=== PATIENT | female | born 1965 | race Caucasian/White ===

== ENCOUNTER → 2020-09-04 09:18 | Outpatient (CLI) | payer OTHER, SELFPAY ==
[2020-09-05 08:56] LABS: Covid-19 Nasal PCR Sendout UK NOT DETECTED
== END ==
PROVIDERS: PCP Family Medicine; Visit Provider Family Medicine
DX: Z03.818 Encounter for observation for suspected exposure to other biological agents ruled out (principal)
CPT/HCPCS: U0003

== ENCOUNTER → 2023-02-23 12:09 | Outpatient (CLI) | payer OTHER, SELFPAY ==
--- NOTE | 2023-02-23 12:14 | XR_ITS ---
FINAL REPORT CLINICAL HISTORY: pain at right iliac crest FINDINGS: RIGHT HIP Two views of the right hip including an AP pelvis demonstrate no acute fracture or dislocation. There are mild hypertrophic changes along the acetabular margins. The visualized bony structures are well aligned. No soft tissue abnormality is seen. IMPRESSION: Mild hypertrophic changes with no acute bony abnormality. Reviewed, Interpreted and Dictated by Cristiano Lujan MD Transcribed by N[place]ia Park Authenticated and [facility]
== END ==
PROVIDERS: PCP Family Medicine; Visit Provider Family Medicine
DX: M25.551 Pain in right hip (principal)
CPT/HCPCS: 73502

== ENCOUNTER → 2023-05-11 23:08 | Outpatient (CLI) | payer OTHER, SELFPAY ==
[2023-05-11 16:26] LABS: Basophils % 0.7 % (0.1-2.0); Eosinophils # 0.2 K/mm3 (0.0-0.4); Eosinophils % 2.9 % (0.1-12.0); Hematocrit 43.5 % (37.0-47.0); Hemoglobin 14.7 g/dL (12.2-16.2); Lymphocytes # 1.6 K/mm3 (0.7-4.5); Lymphocytes % 31.2 % (10-50); Mean Corpuscular HGB Conc 33.8 g/dL (31.8-35.4); Mean Corpuscular Hemoglobin 32.8 pg (27.0-31.2); Mean Corpuscular Volume 97.1 fl (81-99); Mean Platelet Volume 8.5 fl (7.4-10.4); Monocytes # 0.3 K/mm3 (0.1-1.0); Monocytes % 5.5 % (1.7-9.3); Neutrophils # 3.1 K/mm3 (1.8-7.8); Neutrophils % 59.8 % (37.0-80.0); Platelet Count 318 K/mm3 (142-424); Red Blood Count 4.48 M/mm3 (4.20-5.40); Red Cell Distribution Width 12.3 % (11.5-17.5); White Blood Count 5.2 K/mm3 (4.8-10.8)
[2023-05-11 16:27] LABS: Chloride 104 mmol/L (98-107); Potassium 4.5 mmoL/L (3.5-5.1); Sodium 141 mmol/L (136-145)
[2023-05-11 16:30] LABS: Alanine Aminotransferase 25 U/L (12-78); Albumin Level 4.2 g/dl (3.5-5.0); Albumin/Globulin Ratio 1.2 (1.1-1.8); Alkaline Phosphatase 82 U/L (38-126); Anion Gap 13.5 mEq/L (5-15); Aspartate Amino Transferase 35 U/L (14-36); Bilirubin,Total 0.5 mg/dl (0.2-1.3); Blood Urea Nitrogen 18 mg/dl (7-17); Calcium 8.7 mg/dl (8.4-10.2); Carbon Dioxide 28 mmol/L (22.0-30.0); Cholesterol 224 mg/dl (140-200); Estimated Glomerular Filt Rate 74 ml/min (>60); GFR (African American) 89 ML/MIN (>60); Globulin 3.5 g/dL (1.3-3.2); Glucose 95 mg/dl (74-100); Iron 307 ug/dL (37-170); Total Protein,Serum 7.7 g/dl (6.3-8.2); Triglycerides 91 mg/dl (30-150); VLDL Cholesterol 18 mg/dL (0-40)
[2023-05-11 16:31] LABS: Chol/HDL Ratio 3.2 (1-3.5); HDL Cholesterol 71 mg/dl (40-60)
[2023-05-11 16:40] LABS: Total Iron Binding Capacity 405 ug/dL (265-497)
[2023-05-11 16:41] LABS: Direct LDL Cholesterol 114.01 mg/dL (100-129)
[2023-05-11 16:47] LABS: 25-OH Vitamin D, Total 43.6 ng/mL (30-100)
[2023-05-11 17:01] LABS: Thyroid Stimulating Hormone 2.22 uIU/mL (0.465-4.68)
== END ==
PROVIDERS: PCP Nurse Practitioner Family; Visit Provider Nurse Practitioner Family
DX: Z00.00 Encounter for general adult medical examination without abnormal findings (principal); R79.0 Abnormal level of blood mineral; E66.3 Overweight; Z68.29 Body mass index [BMI] 29.0-29.9, adult
CPT/HCPCS: 80053; 80061; 82306; 83540; 83550; 84443; 85025

== ENCOUNTER → 2023-08-03 10:07 | Outpatient (CLI) | payer OTHER, SELFPAY ==
--- NOTE | 2023-08-03 10:07 | US_ITS ---
FINAL REPORT CLINICAL HISTORY: RUQ pain COMPARISON: None FINDINGS: Sonographic images of the right upper quadrant were obtained. The pancreas is partially obscured.The liver has an unremarkable appearance.The gallbladder appears normal without evidence of gallstones.There is no evidence of biliary ductal dilatation.The common duct measures 4mm. Limited images of the right kidney are unremarkable. IMPRESSION: Unremarkable right upper quadrant ultrasound. Reviewed, Interpreted and Dictated by Simone Grijalva III, MD Transcribed by Jennifer Mccracken Authenticated and [facility]
== END ==
PROVIDERS: PCP Family Medicine; Visit Provider Family Medicine
DX: R10.9 Unspecified abdominal pain (principal)
CPT/HCPCS: 76705

== ENCOUNTER → 2023-09-27 09:24 | Outpatient (CLI) | payer OTHER, SELFPAY ==
--- NOTE | 2023-09-27 09:27 | XR_ITS ---
FINAL REPORT CLINICAL HISTORY: left shoulder pain COMPARISON: None FINDINGS: 2 views of the left shoulder were obtained. There is no prior exam for comparison. There is no fracture or dislocation. There is mild acromioclavicular degenerative change present. Soft tissues are normal. IMPRESSION: No acute osseous abnormality of the left shoulder. Reviewed, Interpreted and Dictated by Cheli Menchaca MD Transcribed by Zeina Briggs Authenticated and . [facility]
== END ==
PROVIDERS: PCP Family Medicine; Visit Provider Nurse Practitioner Family
DX: M25.512 Pain in left shoulder (principal)
CPT/HCPCS: 73030

== ENCOUNTER → 2023-10-13 16:41 | Outpatient (CLI) | payer OTHER, SELFPAY ==
--- NOTE | 2023-10-13 16:42 | MR_ITS ---
FINAL REPORT TECHNIQUE: Multiplanar MR without contrast CLINICAL HISTORY: Left shoulder pain. LIIMTED ROM COMPARISON: None FINDINGS: Marrow signal: Unremarkable Glenohumeral joint: Moderate sized joint effusion. No significant degenerative changes. AC joint: Mild arthropathy without rotator cuff impingement. Trace amount of fluid is seen in the subacromial bursa compatible with bursitis. Rotator cuff: Severe tendinosis of the supraspinatus tendon. No evidence of rotator cuff tear. Labrum: Large tear superior labrum extending into the anterior labrum. This involves the biceps tendon anchor. Posterior labrum intact. Biceps tendon: Intra-articular long head biceps tendon intact. IMPRESSION: Large tear superior labrum extending into the anterior labrum. Subacromial bursitis. Reviewed, Interpreted and Dictated by Leilani Coughlin MD Transcribed by Jennifer Mccracken Authenticated and [facility]
== END ==
PROVIDERS: PCP Family Medicine; Visit Provider Nurse Practitioner Family
DX: M25.512 Pain in left shoulder (principal)
CPT/HCPCS: 73221

== ENCOUNTER 2023-12-04 14:00 | Outpatient (RCR) | payer OTHER, SELFPAY | END 2024-01-17 07:40 | disposition home or self-care (01) | LOC: PT 14:00 | PROVIDERS: PCP Family Medicine; Visit Provider Orthopaedic Surgery | DX: M75.02 Adhesive capsulitis of left shoulder (principal); M75.42 Impingement syndrome of left shoulder; M75.52 Bursitis of left shoulder | CPT/HCPCS: 97010; 97014; 97035; 97110; 97140; 97163; 97530; G0283 ==

== ENCOUNTER 2024-07-12 09:40 | Outpatient (CLI) | payer OTHER, SELFPAY ==
[2024-07-12 16:27] LABS: Basophils # 0.1 K/mm3 (0-0.2); Eosinophils # 0.1 K/mm3 (0.0-0.4); Eosinophils % 1.5 % (0.1-12.0); Hematocrit 45.8 % (37.0-47.0); Hemoglobin 14.9 g/dL (12.2-16.2); Lymphocytes # 1.6 K/mm3 (0.7-4.5); Lymphocytes % 29.1 % (10-50); Mean Corpuscular HGB Conc 32.5 g/dL (31.8-35.4); Mean Corpuscular Hemoglobin 33.9 pg (27.0-31.2); Mean Corpuscular Volume 104.1 fl (81-99); Mean Platelet Volume 8.4 fl (7.4-10.4); Monocytes # 0.4 K/mm3 (0.1-1.0); Monocytes % 6.2 % (1.7-9.3); Neutrophils # 3.5 K/mm3 (1.8-7.8); Neutrophils % 62.2 % (37.0-80.0); Platelet Count 369 K/mm3 (142-424); Red Cell Distribution Width 12.9 % (11.5-17.5); White Blood Count 5.6 K/mm3 (4.8-10.8)
[2024-07-12 17:04] LABS: Albumin Level 4.5 g/dl (3.5-5.0); Chloride 107 mmol/L (98-107); Potassium 4.4 mmoL/L (3.5-5.1); Sodium 140 mmol/L (136-145)
[2024-07-12 17:06] LABS: Alanine Aminotransferase 24 U/L (12-78); Aspartate Amino Transferase 33 U/L (14-36); Blood Urea Nitrogen 17 mg/dl (7-17); Estimated Glomerular Filt Rate 86 ml/min (>60); GFR (African American) 104 ML/MIN (>60)
[2024-07-12 17:07] LABS: Albumin/Globulin Ratio 1.4 (1.1-1.8); Alkaline Phosphatase 70 U/L (38-126); Anion Gap 10.4 mEq/L (5-15); Bilirubin,Total 0.8 mg/dl (0.2-1.3); Calcium 8.9 mg/dl (8.4-10.2); Carbon Dioxide 27 mmol/L (22.0-30.0); Chol/HDL Ratio 3.5 (1-3.5); Cholesterol 215 mg/dl (140-200); Globulin 3.3 g/dL (1.3-3.2); Glucose 75 mg/dl (74-100); HDL Cholesterol 61 mg/dl (40-60); Iron 364 ug/dL (37-170); Total Protein,Serum 7.8 g/dl (6.3-8.2); Triglycerides 105 mg/dl (30-150); VLDL Cholesterol 21 mg/dL (0-40)
[2024-07-12 17:17] LABS: Total Iron Binding Capacity 440 ug/dL (265-497)
[2024-07-12 18:44] LABS: Vitamin B12 725 pg/mL (239-931)
[2024-07-12 19:18] LABS: 25-OH Vitamin D, Total 59.7 ng/mL (30-100)
[2024-07-12 19:23] LABS: Free Thyroxine Index 2.5 ug/dL (5.93-13.13); T4 (Thyroxine) 8.1 ug/dl (5.53-11.0); Triiodothryronine (T3) Uptake 31 % (23.5-40.5)
[2024-07-15 18:10] LABS: Homocyst(e)ine 9.6 umol/L (0.0-14.5)
== END 2024-07-12 23:59 | disposition home or self-care (01) ==
LOC: LAB.DROPOF 07-15 07:11
PROVIDERS: PCP Nurse Practitioner Family; Visit Provider Nurse Practitioner Family
DX: Z00.00 Encounter for general adult medical examination without abnormal findings (principal); R79.89 Other specified abnormal findings of blood chemistry
CPT/HCPCS: 80050; 80053; 80061; 82306; 82607; 83090; 83540; 83550; 84436; 84443; 84479; 85025

== ENCOUNTER 2024-09-03 14:20 | Outpatient (CLI) | payer OTHER, SELFPAY ==
[2024-09-03 15:15] LABS: Iron 289 ug/dL (37-170)
[2024-09-03 15:30] LABS: Total Iron Binding Capacity 420 ug/dL (265-497)
[2024-09-03 15:49] LABS: Ferritin 74.8 ng/ml (11.1-264)
== END 2024-09-03 23:59 | disposition home or self-care (01) ==
LOC: LAB 14:21
PROVIDERS: PCP Family Medicine; Visit Provider Internal Medicine Medical Oncology
DX: D64.9 Anemia, unspecified (principal)
CPT/HCPCS: 36415; 81256; 82728; 83540; 83550

== ENCOUNTER 2024-11-18 09:06 | Outpatient (CLI) | payer OTHER, SELFPAY | END 2024-11-18 23:59 | disposition home or self-care (01) | LOC: LAB.DROPOF 11-19 09:06 | PROVIDERS: PCP Nurse Practitioner Family; Visit Provider Nurse Practitioner Family | DX: R39.9 Unspecified symptoms and signs involving the genitourinary system (principal) | CPT/HCPCS: 87086 ==

== ENCOUNTER 2025-01-24 11:11 | Outpatient (CLI) | payer OTHER, SELFPAY ==
[2025-01-24 18:00] LABS: Basophils # 0.1 K/mm3 (0-0.2); Eosinophils # 0.1 K/mm3 (0.0-0.4); Eosinophils % 1.3 % (0.1-12.0); Hematocrit 41.6 % (37.0-47.0); Hemoglobin 14.7 g/dL (12.2-16.2); Lymphocytes # 1.8 K/mm3 (0.7-4.5); Lymphocytes % 25.6 % (10-50); Mean Corpuscular HGB Conc 35.3 g/dL (31.8-35.4); Mean Corpuscular Hemoglobin 34.3 pg (27.0-31.2); Mean Platelet Volume 9.7 fl (7.4-10.4); Monocytes # 0.5 K/mm3 (0.1-1.0); Monocytes % 7.7 % (1.7-9.3); Neutrophils # 4.5 K/mm3 (1.8-7.8); Neutrophils % 64.1 % (37.0-80.0); Platelet Count 363 K/mm3 (142-424); Red Blood Count 4.29 M/mm3 (4.20-5.40); Red Cell Distribution Width 11.8 % (11.5-17.5)
[2025-01-24 18:22] LABS: Alanine Aminotransferase 28 U/L (12-78); Albumin Level 4.6 g/dl (3.5-5.0); Albumin/Globulin Ratio 1.6 (1.1-1.8); Alkaline Phosphatase 76 U/L (38-126); Anion Gap 9.5 mEq/L (5-15); Aspartate Amino Transferase 33 U/L (14-36); Bilirubin,Total 0.2 mg/dl (0.2-1.3); Blood Urea Nitrogen 18 mg/dl (7-17); Calcium 8.8 mg/dl (8.4-10.2); Carbon Dioxide 28 mmol/L (22.0-30.0); Chloride 105 mmol/L (98-107); Estimated Glomerular Filt Rate 73 ml/min (>60); GFR (African American) 89 ML/MIN (>60); Globulin 2.8 g/dL (1.3-3.2); Glucose 94 mg/dl (74-100); Potassium 4.5 mmoL/L (3.5-5.1); Sodium 138 mmol/L (136-145); Total Protein,Serum 7.4 g/dl (6.3-8.2)
[2025-01-24 18:37] LABS: Free Thyroxine Index 2.7 ug/dL (5.93-13.13); T4 (Thyroxine) 8.9 ug/dl (5.53-11.0); Triiodothryronine (T3) Uptake 30 % (23.5-40.5)
[2025-01-24 18:51] LABS: Thyroid Stimulating Hormone 1.95 uIU/mL (0.465-4.68)
[2025-01-24 19:13] LABS: Vitamin B12 901 pg/mL (239-931)
[2025-01-24 19:20] LABS: Iron 240 ug/dL (37-170)
[2025-01-24 19:30] LABS: Total Iron Binding Capacity 471 ug/dL (265-497)
[2025-01-24 19:44] LABS: HIV Combo NEGATIVE (Negative)
[2025-01-24 19:53] LABS: Hepatitis C Ab Qual. W/ RFX NEGATIVE (Negative)
[2025-01-24 20:27] LABS: Hemoglobin A1C 4.9 % (4.0-6.0)
== END 2025-01-24 23:59 | disposition home or self-care (01) ==
LOC: LAB.DROPOF 01-25 11:11
PROVIDERS: PCP Nurse Practitioner Family; Visit Provider Nurse Practitioner Family
DX: R79.0 Abnormal level of blood mineral (principal); R63.5 Abnormal weight gain; Z68.32 Body mass index [BMI] 32.0-32.9, adult
CPT/HCPCS: 80053; 82607; 83036; 83540; 83550; 84436; 84443; 84479; 85025; 86803; 87389